=== PATIENT | female | born 1970 | race African-American/Black ===

== ENCOUNTER 2025-03-13 22:57 | Emergency (ER) | payer MEDICAID ==
[~2025-03-13] VITALS: Ht 165.1 cm; Wt 57.0 kg
[2025-03-13 23:00] VITALS: O2SAT 100
[2025-03-13 23:37] LABS: BASOPHILS % 0.7 % (0.0-2.0); EOSINOPHILS % 0.7 % (0.0-5.0); HEMATOCRIT. 41.2 % (36.0-48.0); HEMOGLOBIN. 13.5 g/dL (12.0-16.0); LYMPHOCYTES % 35.0 % (20.0-50.0); MEAN PLATELET VOLUME 7.2 fl (7.4-10.4); MONOCYTES % 2.1 % (2.0-8.0); NEUTROPHILS % 61.5 % (40.0-76.0); PLATELET 291 x1000/uL (130-400); RED BLOOD CELL COUNT 4.42 mill/uL (4.2-5.4); RED CELL DISTRIBUTION WIDTH 17.2 % (11.6-14.6)
[2025-03-13] MEDS: MORPHINE SULFATE 4 MG/ML INJ (FOR IV/IM USE) IV NR (23:37)
[2025-03-13] MEDS: ONDANSETRON HCL 4MG/2ML INJ IV NR (23:37)
[2025-03-13 23:50] LABS: CREATININE 0.7 mg/dL (0.6-1.0); UREA NITROGEN BLOOD 8 mg/dL (9-23)
[2025-03-13 23:52] LABS: ASPARTATE AMINOTRANSFERASE 18 IU/L (<34); BILIRUBIN DIRECT 0.1 mg/dL (<=3.0); BILIRUBIN TOTAL 0.4 mg/dL (0.1-1.0); PROTEIN TOTAL 7.0 g/dL (6.0-8.3)
[2025-03-14] MEDS ORDERED: MORPHINE SULFATE 2 MG/ML INJ (NOT FOR IM USE) IV ONE (00:30)
[2025-03-14 00:41] LABS: CLARITY URINE CLEAR (CLEAR); COLOR URINE YELLOW (YELLOW); GLUCOSE URINE NEGATIVE (NEGATIVE); KETONES URINE NEGATIVE (NEGATIVE); LEUKOCYTE ESTERASE URINE NEGATIVE (NEGATIVE); NITRITE URINE NEGATIVE (NEGATIVE); OCCULT BLOOD URINE TRACE (NEGATIVE); PH URINE 7.0 (4.5-8.0); PROTEIN URINE NEGATIVE (NEGATIVE); SPECIFIC GRAVITY URINE 1.006 (1.005-1.030); UROBILINOGEN URINE 1.0 E.U./dL (0.2-1.0)
[2025-03-14] MEDS: MORPHINE SULFATE 4 MG/ML INJ (FOR IV/IM USE) IV NR (00:42)
[2025-03-14] MEDS ORDERED: HYDR-4001 MT (01:09)
[2025-03-14 01:18] LABS: RBC URINE 0-2 /hpf (0-2); SQUAMOUS EPITHELIAL CELL URINE FEW /lpf (RARE/1+)
[2025-03-14 01:19] LABS: AMORPHOUS SEDIMENT URINE 1+ /lpf; BACTERIA URINE NONE SEEN
[2025-03-14 01:36] VITALS: BP 160/99; PULSE 58; RESP 16; TEMP 36.6; O2SAT 100
[2025-03-21] MEDS ORDERED: HYDR-4001 MT ×2 (11:36→11:37)
[2025-03-21] MEDS ORDERED: SULF1TAB48 MT (11:36)
[2025-03-21] MEDS ORDERED: PRED10TA MT (11:36)
== END 2025-03-14 01:40 | disposition home or self-care (01) ==
LOC: ER 22:57
DX: M79.671 Pain in right foot (principal); M79.672 Pain in left foot; L12.9 Pemphigoid, unspecified; I10 Essential (primary) hypertension; Z88.0 Allergy status to penicillin
CPT/HCPCS: 99285; 93970; 96374; 96375; 80076; 80048; 85025; 36415; 84145; 93005; 81003; 96376; J2405; J2270 ×2